=== PATIENT | male | born 1960 | race Two or more races ===

== ENCOUNTER 2018-09-04 10:27 | Emergency (ER) | payer OTHER ==
[~2018-09-04] VITALS: Ht 177.8 cm; Wt 112.5 kg
[2018-09-04] MEDS ORDERED: WELLBUTRIN XL300 MG (10:43)
[2018-09-04] MEDS ORDERED: KLONOPIN PO (10:44)
[2018-09-04] MEDS ORDERED: RISPERDAL4 MG (10:44)
[2018-09-04] MEDS ORDERED: PROSOM PO (10:46)
== END 2018-09-04 12:12 | disposition home or self-care (01) ==
LOC: ER 10:27
DX: S50.01XA Contusion of right elbow, initial encounter (principal); S20.222A Contusion of left back wall of thorax, initial encounter; S20.221A Contusion of right back wall of thorax, initial encounter; W06.XXXA Fall from bed, initial encounter; Y93.89 Activity, other specified; Y92.092 Bedroom in other non-institutional residence as the place of occurrence of the external cause; Y99.8 Other external cause status

== ENCOUNTER → 2018-11-05 | Emergency (ER) | payer OTHER ==
[~2018-11-05] VITALS: Ht 172.7 cm; Wt 95.3 kg
[~2018-11-05] MED LIST: ASPIR 8181 MG; KLONOPIN PO; LOSARTAN-HCTZ1 EAC1; PROSOM PO; RISPERDAL4 MG; SIMVASTATIN20 MG; SYNTHROID88 MCG; WELLBUTRIN XL300 MG
== END | disposition left against medical advice (07) ==
LOC: ER 11:54
DX: Z53.20 Procedure and treatment not carried out because of patient's decision for unspecified reasons (principal)

== ENCOUNTER 2018-11-10 10:10 | Emergency (ER) | payer OTHER ==
[~2018-11-10] VITALS: Ht 182.9 cm; Wt 112.5 kg
== END 2018-11-10 13:29 | disposition home or self-care (01) ==
LOC: ER 10:10
DX: J00 Acute nasopharyngitis [common cold] (principal); R05 Cough

== ENCOUNTER 2019-01-13 05:24 | Emergency (ER) | payer OTHER ==
[~2019-01-13] VITALS: Ht 182.9 cm; Wt 113.4 kg
[2019-01-13] MEDS ORDERED: KETO10TA2 PO (06:41)
[2019-01-13] MEDS ORDERED: ORPHENADRINE C100 MG PO (06:41)
== END 2019-01-13 06:53 | disposition home or self-care (01) ==
LOC: ER 05:24
DX: S13.4XXA Sprain of ligaments of cervical spine, initial encounter (principal); S30.0XXA Contusion of lower back and pelvis, initial encounter; S20.212A Contusion of left front wall of thorax, initial encounter; S20.211A Contusion of right front wall of thorax, initial encounter; V49.9XXA Car occupant (driver) (passenger) injured in unspecified traffic accident, initial encounter; Y93.89 Activity, other specified; Y92.488 Other paved roadways as the place of occurrence of the external cause; Y99.8 Other external cause status